=== PATIENT | female | born 1985 | race Caucasian/White ===

== ENCOUNTER 2017-08-02 04:20 | Emergency (ER) | payer OTHER, SELFPAY ==
[~2017-08-02] VITALS: Ht 165.1 cm; Wt 113.6 kg
[~2017-08-02 04:20] MED LIST: CIPR500T4 OR; FLAG250T OR; IBUP600T OR; LABE100T2 PO; Macrobid PO; Prenatal Vitamins PO; VICO5TAB OR; ZANT150T PO
[2017-08-02 08:36] VITALS: BP 135/60
[2017-08-02] MEDS ORDERED: CYCL10TA PO ×2 (08:52→09:24)
== END 2017-08-02 08:57 | disposition home or self-care (01) ==
LOC: M ED 04:20
DX: M54.5 Low back pain (principal); F17.210 Nicotine dependence, cigarettes, uncomplicated

== ENCOUNTER 2018-10-21 10:54 | Emergency (ER) | payer OTHER, SELFPAY ==
[~2018-10-21] VITALS: Ht 165.1 cm; Wt 118.2 kg
[~2018-10-21 10:54] MED LIST changes: +CYCL10TA PO
--- NOTE | 2018-10-21 11:59 | REP ---
CT Head without contrast HISTORY: Headache COMPARISON: None There is no intraparenchymal hemorrhage, acute infarct, mass or midline shift. The ventricular system is normal in appearance. There is no extra cerebral collection. There is no fracture. The visualized sinuses are clear. IMPRESSION: There is no intracranial lesion. Electronically Signed by Dao Sullivan MD 10/21/2018 11:50 A
[2018-10-21] MEDS ORDERED: ACETAMINOPHEN TAB 650MG DOSE (2X325MG) PO ONE (12:15)
[2018-10-21 12:20] VITALS: BP 128/75
== END 2018-10-21 12:21 | disposition home or self-care (01) ==
LOC: M ED 10:54
DX: S09.90XA Unspecified injury of head, initial encounter (principal); W22.8XXA Striking against or struck by other objects, initial encounter; Y92.89 Other specified places as the place of occurrence of the external cause

== ENCOUNTER → 2020-09-04 | Outpatient (CLI) | payer SELFPAY ==
[~2020-09-04] MED LIST changes: +CYCL-707 PO; -CYCL10TA PO
== END ==
LOC: M LABSMTC 10:46
PROVIDERS: ATTEND Pediatrics
DX: Z20.828 Contact with and (suspected) exposure to other viral communicable diseases (principal)

== ENCOUNTER → 2021-07-29 | Outpatient (REF) ==
[2021-07-29 13:58] LABS: RSV AMPLIFICATION NEGATIVE (NEGATIVE)
== END ==
LOC: M EMP 10:32
PROVIDERS: ATTEND Family Medicine
DX: Z20.822 Contact with and (suspected) exposure to COVID-19 (principal)

== ENCOUNTER → 2021-09-01 | Outpatient (REF) | LOC: M LABSMTC 11:50 | PROVIDERS: ATTEND Family Medicine | DX: Z11.52 Encounter for screening for COVID-19 (principal); Z20.822 Contact with and (suspected) exposure to COVID-19 ==

== ENCOUNTER 2022-04-09 09:37 | Emergency (ER) | payer SELFPAY ==
[~2022-04-09] VITALS: Ht 165.1 cm; Wt 123.7 kg
[2022-04-09 09:38] VITALS: BP 142/99
[2022-04-10] MEDS ORDERED: AMOX875T2 PO (02:00)
[2022-04-10] MEDS ORDERED: LIDO2SOL17 PO (02:00)
[2022-04-10] MEDS ORDERED: KETO10TAB PO (02:00)
[2022-04-10] MEDS ORDERED: PRED20TA PO (02:00)
== END 2022-04-09 10:28 | disposition left against medical advice (07) ==
LOC: M ED 09:37
DX: Z53.29 Procedure and treatment not carried out because of patient's decision for other reasons (principal)

== ENCOUNTER 2022-04-09 20:23 | Emergency (ER) | payer BC, SELFPAY ==
[~2022-04-09] VITALS: Ht 165.1 cm; Wt 118.2 kg
[2022-04-09 23:35] VITALS: BP 192/108
[2022-04-10] MEDS ORDERED: AMOX875T2 PO (02:00)
[2022-04-10] MEDS ORDERED: predniSONE 20 MG TAB PO ONE (02:00)
[2022-04-10] MEDS ORDERED: LIDOCAINE VISCOUS 2% SOLN 15ML UDC SSP ONE (02:00)
[2022-04-10] MEDS ORDERED: AUGMENTIN 875 MG TAB PO ONE (02:00)
[2022-04-10] MEDS ORDERED: KETO10TAB PO (02:00)
[2022-04-10] MEDS ORDERED: LIDO2SOL17 PO (02:00)
[2022-04-10] MEDS ORDERED: KETOROLAC 60MG 2ML VIAL IM ONE (02:00)
[2022-04-10] MEDS ORDERED: PRED20TA PO (02:00)
== END 2022-04-10 02:16 | disposition home or self-care (01) ==
LOC: M ED 20:23
DX: K04.7 Periapical abscess without sinus (principal); E66.9 Obesity, unspecified; F17.210 Nicotine dependence, cigarettes, uncomplicated
CPT/HCPCS: 96372; 99283; J1885; J7512

== ENCOUNTER 2022-11-16 08:29 | Emergency (ER) | payer BC, OTHER ==
[~2022-11-16] VITALS: Ht 165.1 cm; Wt 117.1 kg
[~2022-11-16 08:29] MED LIST changes: +AMOX875T2 PO; +KETO10TAB PO; +LIDO15SO4 PO; +PRED20TA PO
[2022-11-16 08:30] VITALS: BP 138/76
[2022-11-16] MEDS ORDERED: NAPR-837 PO (09:31)
[2022-11-16] MEDS ORDERED: LIDO5DIS41 TD (09:32)
== END 2022-11-16 09:51 | disposition home or self-care (01) ==
LOC: M ED 08:29
DX: M54.50 Low back pain, unspecified (principal); I10 Essential (primary) hypertension

== ENCOUNTER → 2024-05-09 | Outpatient (REF) | payer OTHER ==
[~2024-05-09] MED LIST changes: -LIDO15SO4 PO; +LIDO15SO8 PO; +LIDO5DIS41 TD; +NAPR-837 PO
[2024-05-10 13:20] LABS: ALBUMIN 3.8 G/DL (3.2-5.2); ALKALINE PHOSPHATASE 70 U/L (46-116); ALT/SGPT 16 U/L (7.0-40); AST/SGOT 11 U/L (<34); BILIRUBIN,TOTAL 0.6 MG/DL (0.3-1.2); BLOOD UREA NITROGEN 10 MG/DL (9-23); CALCIUM LEVEL 8.6 MG/DL (8.5-10.1); CARBON DIOXIDE LEVEL 27 MMOL/L (20-31); CHLORIDE LEVEL 107 MMOL/L (98-107); CHOLESTEROL LEVEL 146 MG/DL (<200); CREATININE FOR GFR 0.79 MG/DL (0.55-1.30); GLOMERULAR FILTRATION RATE > 60.0 (>60); GLUCOSE, FASTING 80 MG/DL (60-100); HDL CHOLESTEROL 38.4 MG/DL (>40); LDL CHOLESTEROL 80.4 MG/DL (<100); NON-HDL-C 107.6 MG/DL; POTASSIUM SERUM 4.4 MMOL/L (3.5-5.1); SODIUM LEVEL 137 MMOL/L (136-145); TOTAL PROTEIN 6.9 G/DL (5.7-8.2); TRIGLYCERIDES LEVEL 136 MG/DL (<150)
[2024-05-10 13:23] LABS: THYROID STIMULATING HORMONE 3.352 uIU/ML (0.55-4.78)
[2024-05-10 13:30] LABS: HEMOGLOBIN A1c 4.9 % (4.0-6.0)
== END ==
LOC: M LAB REF 11:32
PROVIDERS: ATTEND Physician Assistant
DX: R30.0 Dysuria (principal); Z11.9 Encounter for screening for infectious and parasitic diseases, unspecified; E66.9 Obesity, unspecified; E55.9 Vitamin D deficiency, unspecified

== ENCOUNTER → 2024-07-03 | Outpatient (CLI) | payer OTHER | LOC: M RAD 14:03 | PROVIDERS: ATTEND Physician Assistant | DX: Z80.51 Family history of malignant neoplasm of kidney (principal) ==

== ENCOUNTER → 2024-09-07 | Outpatient (REF) | payer OTHER | LOC: M LAB REF 12:02 | PROVIDERS: ATTEND Nurse Practitioner Family | DX: J00 Acute nasopharyngitis [common cold] (principal) ==

== ENCOUNTER → 2025-05-18 | Outpatient (REF) | payer OTHER ==
[~2025-05-18] MED LIST changes: +LIDO1ADH93 TD; -LIDO5DIS41 TD
[2025-05-18 18:35] LABS: BASO # 0.0 10^3/uL (0.0-0.2); BASO % 0.4 % (0.0-1.0); EOS # 0.1 10^3/uL (0.0-0.5); EOS % 1.5 % (0.0-3.0); LYMPH # 2.1 10^3/uL (1.5-5.0); LYMPH % 22.5 % (24.0-44.0); MONO # 0.6 10^3/uL (0.0-0.8); MONO % 6.5 % (2.0-8.0); NEUTROPHILS # 6.2 10^3/uL (1.5-8.5); NEUTROPHILS % 68.4 % (36.0-66.0); PLATELET COUNT, AUTOMATED 329 10^3/uL (150-450)
[2025-05-18 18:37] LABS: ALT/SGPT 21 U/L (7.0-40); AST/SGOT 13 U/L (<34); CALCIUM LEVEL 8.9 MG/DL (8.5-10.1); CARBON DIOXIDE LEVEL 23 MMOL/L (20-31); CHLORIDE LEVEL 107 MMOL/L (98-107); CHOLESTEROL LEVEL 145 MG/DL (<200); CHOLESTEROL RISK RATIO 3.34 (<5); CREATININE FOR GFR 0.74 MG/DL (0.55-1.30); GLOMERULAR FILTRATION RATE > 90.0 (>60); LDL CHOLESTEROL 76.7 MG/DL (<100); NON-HDL-C 101.7 MG/DL; POTASSIUM SERUM 4.0 MMOL/L (3.5-5.1); SODIUM LEVEL 139 MMOL/L (136-145); TRIGLYCERIDES LEVEL 125 MG/DL (<150)
[2025-05-18 18:39] LABS: TOTAL 25(OH) VITAMIN D 31.1 NG/ML (20.0-100.0)
[2025-05-18 19:11] LABS: ESTIMATED AVERAGE GLUCOSE 100.0 MG/DL (60-110)
== END ==
LOC: M LAB REF 17:06
PROVIDERS: ATTEND Nurse Practitioner Family
DX: Z68.43 Body mass index [BMI] 50.0-59.9, adult (principal); E66.813 Obesity, class 3; E55.9 Vitamin D deficiency, unspecified